=== PATIENT | female | born 1995 | race African-American/Black ===

== ENCOUNTER 2017-08-03 23:56 | Emergency (ER) | payer OTHER, SELFPAY ==
[2017-08-03 23:57] VITALS: BP 87/55; PULSE 95; RESP 20; TEMP 36.6; O2SAT 97; BMI 47.7
--- NOTE | 2017-08-04 00:14 | RAD_ITS ---
STUDY: X-RAY - LEFT WRIST REASON FOR EXAM: Female, 22 years old. Fracture of the distal radius after recent fall. TECHNIQUE: 3 view(s) of the wrist were obtained. COMPARISON: Prior comparison studies are not available for review at this time. FINDINGS: There is an acute displaced fracture of the distal radial metaphysis. Fracture fragments are displaced posteriorly. The fracture appears to involve the distal radioulnar articulation. Normal radiocarpal articulation. Normal carpal bones. Normal carpal articulations. Normal carpometacarpal articulation of the thumb. Normal second through fifth carpometacarpal articulations. Normal visualized metacarpal bones. There is soft tissue swelling. RAD/Wrist min 3 Views IMPRESSION: Acute intra-articular Colles' fracture of the distal radius. Electronically Signed: Jazmyne Allen MD at 1:20 EDT , Service support ,
--- NOTE | 2017-08-04 00:15 | ED.VISSUMM ---
- ER Visit Summary Date of Service: 08/04/17 Chief Complaint: Left wrist injury History of Present Illness: The patient is a 22 F mechanical fall while at the bar half hour prior to arrival. Left wrist pain. Had 3 alcoholic drinks. Denies head injuries. No loss of consciousness. No neck or back pain. History of right wrist and hand fracture when she was younger. No surgical interventions. No paresthesias. Pain worse with movement. No other complaints. Admits to alcohol drinks on weekends and sometimes on Wednesdays, occasional THC use. Tobacco history. Physical Examination: General: Alert and oriented ?3, tearful, anxious, however follows commands. HEENT: Normocephalic, atraumatic. Moist mucosa membranes Neck: supple, nontender. Cardiovascular: Regular rate and rhythm, no murmurs Respiratory: Normal breath sounds, symmetric, no distress Abdomen: Soft, nontender, nondistended Extremities: Right upper extremity: No shoulder or elbow pain. There is swelling and tenderness at the snuffbox. Mild tenderness at the ulnar styloid. No hand tenderness. Skin intact. Neuro: no focal neurological deficits. Test Results: Left wrist x-ray: Distal radius fracture with dorsal tilt, 50% displaced. Post reduction: Improved tilt, 25% dorsal displacement. Emergency Department Course and Treatment: X-ray notes distal radius fracture. Hematoma block performed and reduce with a plaster splint in a flexed position. Patient neurovascularly intact post splinting. Repeat x-ray notes improved tilt, there is 25% displacement, improved from original. Sling was provided for comfort. Discussed to maintain the splint, she is given follow-up with on-call orthopedist, Dr. Pinon. She declines any opiates. She states she will use Tylenol or Motrin. She will follow-up as an outpatient. Treatment Plan: [] Disposition: Discharge Impression: Left distal radius fracture status post reduction This note was generated with [employer] dictation software. It may contain incorrect words, spelling, and punctuation that were not noted in review of the chart prior to signing ED Disposition - Plan for ED Patient: Disposition: Home or Assisted Living Chief Complaint: Upper Extremity Injury Diagnosis: Left wrist fracture Instructions: ED Fx Colles Wrist Redu Requ Referrals: [facility] Doctor,Out of [NON-STAFF] - Aryan Pinon MD [STAFF PHYSICIAN] - 3-5 Days Additional Instructions: Distal radius fracture. Keep splint, use sling for comfort. Tylenol or Motrin as needed.
--- NOTE | 2017-08-04 01:44 | RAD_ITS ---
STUDY: X-RAY - LEFT WRIST REASON FOR EXAM: Female, 22 years old. Documentation of closed reduction of a Colles' fracture the distal radius. TECHNIQUE: AP and lateral view(s) of the wrist were obtained. COMPARISON: Radiographs of the left wrist dated August 04, 2017 FINDINGS: There is improved alignment of the fracture fragments of the distal radius. The previous study. A cast is present. There is a negative ulnar variance. The fracture extends into the distal radioulnar articulation. Normal carpal bones. Normal carpal articulations. Normal carpometacarpal articulation of the thumb. Normal second through fifth carpometacarpal articulations. Normal visualized metacarpal bones. There is soft tissue swelling. RAD/Wrist 2 Views IMPRESSION: Documentation of closed reduction of the displaced Colles' fracture and application of a cast. Electronically Signed: Jazmyne Allen MD at 3:07 EDT , Service support ,
[2017-08-04 02:53] VITALS: BP 150/90; PULSE 80; RESP 18
== END 2017-08-04 02:54 | disposition home or self-care (01) ==
PROVIDERS: Emergency Provider Emergency Medicine
DX: S52.532A Colles' fracture of left radius, initial encounter for closed fracture (principal); W19.XXXA Unspecified fall, initial encounter; Y93.89 Activity, other specified; Y92.89 Other specified places as the place of occurrence of the external cause; Z72.89 Other problems related to lifestyle; Z72.0 Tobacco use
CPT/HCPCS: 25605; 73100; 73110; 99283

== ENCOUNTER 2017-08-04 11:11 | Emergency (ER) | payer OTHER, SELFPAY ==
[2017-08-04 11:12] VITALS: BP 170/123; PULSE 77; RESP 16; TEMP 36.6; O2SAT 98; BMI 47.5
--- NOTE | 2017-08-04 11:40 | ED.DCSUM_ITS ---
- ER Visit Summary Date of Service: 08/04/17 Chief Complaint: [Injury to left wrist] History of Present Illness: The patient is a 22 F [presents to the emergency department with pain to her left wrist after sustaining a fracture yesterday. Patient states she fell on a wet floor and try to catch herself with her left arm injuring her wrist. Patient was seen in this emergency department and the emergency room doctor attempted a reduction and patient was splinted and advised to follow-up with orthopedics. Patient states that initially she refused pain medication because her wrist was kind of numb but now having a lot more discomfort. Patient has not been wearing her sling because she states that it is uncomfortable.] Physical Examination: [Left arm-patient has a splint in place. No significant edema of the digits or hand noted. Patient has normal range of motion and normal cap refill. Neurovascularly intact.] Test Results: [None indicated] Emergency Department Course and Treatment: [Patient was medicated with 2 [place] and will be given a sling. Case was discussed with Dr. Alex Allen who is on- call for orthopedics. Dr. Allen evaluated the patient's x-ray and post reduction films and stated that patient will likely require further treatment and that she needed to follow-up with Dr. Pinon who was on-call yesterday. Patient should follow-up within the next 1-2 days.] Treatment Plan: [[place] for pain] Disposition: [Discharged home in stable condition.] Impression: [Left distal radius fracture Left wrist pain] This note was generated with [employer] dictation software. It may contain incorrect words, spelling, and punctuation that were not noted in review of the chart prior to signing ED Disposition - Plan for ED Patient: Chief Complaint: Upper Extremity Injury Referrals: Care Physician,No Primary [Primary Care Provider] -
--- NOTE | 2017-08-04 11:42 | DCINST.ED_ITS ---
ED Disposition - Plan for ED Patient: Chief Complaint: Upper Extremity Injury Instructions: ED Fx Colles Wrist Redu Requ Prescriptions: Hydrocodone Bitart/Apap 5-325 [[place] 5/325] 1 - 2 tab PO Q4H PRN PRN 5 Days #20 tab PRN Reason: Pain Referrals: Care Physician,No Primary [Primary Care Provider] - Aryan Pinon MD [STAFF PHYSICIAN] - 1-2 Days if not improving
[2017-08-04] MEDS: HYDROcodone Bitartrate/Apap 5/325 Tablet PO (12:06)
[2017-08-04 12:16] VITALS: BP 154/99; PULSE 89; RESP 18; O2SAT 99
== END 2017-08-04 12:20 | disposition home or self-care (01) ==
LOC: ED 12:07
PROVIDERS: Emergency Provider Emergency Medicine
DX: S52.502A Unspecified fracture of the lower end of left radius, initial encounter for closed fracture (principal); W01.0XXA Fall on same level from slipping, tripping and stumbling without subsequent striking against object, initial encounter; Y93.9 Activity, unspecified; Y92.9 Unspecified place or not applicable; F12.90 Cannabis use, unspecified, uncomplicated
CPT/HCPCS: 99282

== ENCOUNTER → 2017-08-16 16:34 | Outpatient (CLI) | payer OTHER, SELFPAY ==
[2017-08-16 17:08] LABS: Hematocrit 39.7 % (37-47); Hemoglobin 12.5 g/dl (12.0-15.0); Mean Corp Hgb Conc 31.5 g/gl (32-36); Mean Corpuscular Hgb 24.6 pg (27.0-32.0); Mean Platelet Vol. 10.6 fl (6.2-12.0); Platelet Count 347 K/mm3 (150-450); RBC Distribution Width CV 14.7 % (11.6-14.6); RBC Distribution Width SD 41.1 fl (35.1-43.9); Red Blood Count 5.09 M/mm3 (4.2-5.4); White Blood Count 12.6 K/mm3 (4.4-11.0)
[2017-08-16 17:13] LABS: Scan Indicated on CBC? Y/N NO
[2017-08-16 17:49] LABS: Anion Gap 7 (5-15); BUN 8 mg/dL (7-18); Chloride 108 mmol/L (98-107); Creatinine, Serum 0.67 mg/dL (0.55-1.02); EST Glomerular Filtration Rate 118 mL/min (>60); Est Glom Filt Rate - Afr Amer 143 mL/min (>60); Glucose 78 mg/dL (74-106); Sodium Level 139 mmol/L (136-145)
== END ==
PROVIDERS: Visit Provider Orthopaedic Surgery
DX: Z01.818 Encounter for other preprocedural examination (principal); Z01.810 Encounter for preprocedural cardiovascular examination; F17.200 Nicotine dependence, unspecified, uncomplicated
CPT/HCPCS: 36415; 80048; 85027; 93005

== ENCOUNTER 2018-06-23 12:11 | Emergency (ER) | payer MEDICAID, SELFPAY ==
[2018-06-23 12:12] VITALS: BP 167/83; PULSE 78; RESP 16; TEMP 36.3; O2SAT 98; BMI 50.3
--- NOTE | 2018-06-23 12:50 | RAD_ITS ---
STUDY: X-RAY - RIGHT FOOT CLINICAL: Female, 23 years old. Pain following injury. TECHNIQUE: 3 view(s) of the foot. COMPARISON: None. FINDINGS: Normal talus, calcaneus, and tarsal bones. Normal visualized subtalar, talonavicular, calcaneocuboid, tarsal and tarsometatarsal articulations. Nondisplaced transverse fractures at the base of the second and third metatarsals. Normal metatarsophalangeal joint of the great toe. There is a bipartite tibial sesamoid. Normal interphalangeal joint of the great toe. Normal phalanges of the great toe. Normal second through fifth metatarsophalangeal joints. Normal interphalangeal joints and phalanges of the lesser toes. Soft tissue swelling. RAD/Foot min 3 Views IMPRESSION: Nondisplaced transverse fractures involving the bases of the second and third metatarsals. Soft tissue swelling. Electronically Signed: Jalen Oliveira, at 13:29 EST , Service support ,
--- NOTE | 2018-06-23 14:54 | ED.VISSUMM ---
- ER Visit Summary Date of Service: 06/23/18 Chief Complaint: [Injury right foot] History of Present Illness: The patient is a 23 F [presents to the emergency department complaint of an injury to her right foot that occurred prior to arrival in the emergency department. Patient states that she was trying to put on a sock and she lost her balance and fell twisting her right foot. Patient unable to bear weight afterwards. Patient presented with her own crutches.] Physical Examination: [HEENT-PERRLA, EOMI. Cranial nerves II through XII grossly intact. TMs clear. Mucous membranes moist. No adenopathy. Cardiovascular-regular rate and rhythm without murmur or ectopy Lungs-clear to auscultation, chest wall stable without crepitus or subcu emphysema Abdomen-normoactive bowel sounds, soft, nontender, no rebound or rigidity, no peritoneal signs. Extremities-intact ?4, normal range of motion, normal pulses. Right foot-patient has diffuse soft tissue swelling over the dorsum and distal portion of the foot. Patient has diffuse tenderness to palpation. No obvious ecchymosis or bruising noted. No pain at the ankle.] Test Results: [X-rays of the right foot were obtained which showed a fracture of the second and third metatarsal bases.] Emergency Department Course and Treatment: [Case was discussed with Dr. Castro covering podiatry. I was asked to place patient in a posterior splint and crutches and nonweightbearing. Patient was given 1 dose of [place] p.o. Patient will follow up early next week with podiatry.] Treatment Plan: [Patient to follow-up with podiatry within next 3-5 days. Patient given a prescription for Crum Lynne.] Patient advised to ice and elevate the extremity patient advised on nonweightbearing Disposition: [Discharged home in stable condition.] Impression: [Right foot fractures second and third metatarsal bases] This note was generated with [employer] dictation software. It may contain incorrect words, spelling, and punctuation that were not noted in review of the chart prior to signing ED Disposition - Plan for ED Patient: Referrals: Sumeet Blount MD [Primary Care Provider] -
--- NOTE | 2018-06-23 14:58 | ED.DCSUM_ITS ---
- ER Visit Summary Date of Service: 06/23/18 Chief Complaint: [Injury right foot] History of Present Illness: The patient is a 23 F [presents to the emergency department complaint of an injury to her right foot that occurred prior to arrival in the emergency department. Patient states that she was trying to put on a sock and she lost her balance and fell twisting her right foot. Patient unable to bear weight afterwards. Patient presented with her own crutches.] Physical Examination: [HEENT-PERRLA, EOMI. Cranial nerves II through XII grossly intact. TMs clear. Mucous membranes moist. No adenopathy. Cardiovascular-regular rate and rhythm without murmur or ectopy Lungs-clear to auscultation, chest wall stable without crepitus or subcu emphysema Abdomen-normoactive bowel sounds, soft, nontender, no rebound or rigidity, no peritoneal signs. Extremities-intact ?4, normal range of motion, normal pulses. Right foot- patient has diffuse soft tissue swelling over the dorsum and distal portion of the foot. Patient has diffuse tenderness to palpation. No obvious ecchymosis or bruising noted. No pain at the ankle.] Test Results: [X-rays of the right foot were obtained which showed a fracture of the second and third metatarsal bases.] Emergency Department Course and Treatment: [Case was discussed with Dr. Castro covering podiatry. I was asked to place patient in a posterior splint and crutches and nonweightbearing. Patient was given 1 dose of [place] p.o. Patient will follow up early next week with podiatry.] Treatment Plan: [Patient to follow-up with podiatry within next 3-5 days. Patient given a prescription for Langlois.] Patient advised to ice and elevate the extremity patient advised on nonweightbearing Disposition: [Discharged home in stable condition.] Impression: [Right foot fractures second and third metatarsal bases] This note was generated with [employer] dictation software. It may contain incorrect words, spelling, and punctuation that were not noted in review of the chart prior to signing ED Disposition - Plan for ED Patient: Referrals: Sumeet Blount MD [Primary Care Provider] -
--- NOTE | 2018-06-23 14:58 | ED.DEP ---
ED Disposition - Plan for ED Patient: Instructions: ED Fx Foot Prescriptions: Hydrocodone Bitart/Apap 5-325 [[place] 5MG-325MG] 1 tab PO Q4H PRN PRN 2 Days #20 tab PRN Reason: Pain Referrals: Sumeet Blount MD [Primary Care Provider] - Beau Castro DPM [STAFF PHYSICIAN] - 3-5 Days
[2018-06-23] MEDS: HYDROcodone Bitartrate/Apap 5/325 Tablet PO (15:01)
[2018-06-23 15:35] VITALS: BP 138/89; PULSE 88; RESP 16; O2SAT 98
== END 2018-06-23 15:36 | disposition home or self-care (01) ==
PROVIDERS: Emergency Provider Emergency Medicine; Family Provider Pediatrics; PCP Pediatrics
DX: S92.324A Nondisplaced fracture of second metatarsal bone, right foot, initial encounter for closed fracture (principal); S92.334A Nondisplaced fracture of third metatarsal bone, right foot, initial encounter for closed fracture; W19.XXXA Unspecified fall, initial encounter; Y93.89 Activity, other specified; Y92.9 Unspecified place or not applicable
CPT/HCPCS: 29515; 73630; 99283

== ENCOUNTER → 2018-06-28 14:15 | Outpatient (CLI) | payer MEDICAID, SELFPAY ==
[2018-06-23 12:12] VITALS: BMI 50.3
--- NOTE | 2018-06-28 14:21 | VDLE_ITS ---
Reason For Study: LEG PAIN RIGHT GSV is normal. CFV is compressible, spontaneous, phasic, competent and demonstrates normal augmentation. FV is compressible, spontaneous, phasic, competent and demonstrates normal augmentation. POP V is compressible, spontaneous, phasic, competent and demonstrates normal augmentation. T/P Trunk is compressible. PTV is compressible. Acute deep vein thrombosis is noted in the right peroneal vein. Procedure Exam performed in department. A preliminary report was called and/or faxed to Dr. Castro. Interpretation Summary Acute deep vein thrombosis is noted in the right peroneal vein. The remainder of the right lower extremity deep venous system is patent and compressible. Valvular competence appears intact within the proximal deep venous system on the right . The right greater saphenous vein appears patent and compressible segmentally. Ordering Physician: Beau Castro Referring Physician: Beau Castro Performed By: Laurel Beaulieu RVT
== END ==
PROVIDERS: Referring Provider Podiatrist; Visit Provider Podiatrist
DX: I82.401 Acute embolism and thrombosis of unspecified deep veins of right lower extremity (principal)
CPT/HCPCS: 93971

== ENCOUNTER 2018-06-28 15:43 | Emergency (ER) | payer MEDICAID, SELFPAY ==
[2018-06-28 15:45] VITALS: BP 164/94; PULSE 82; RESP 16; TEMP 36.6; O2SAT 99; BMI 51.5
--- NOTE | 2018-06-28 17:45 | ED.DCSUM_ITS ---
- ER Visit Summary Date of Service: 06/28/18 Chief Complaint: Right lower extremity DVT History of Present Illness: The patient is a 23 F presenting with right lower extremity DVT. Patient recently sustained a metatarsal fracture on Tuesday. She has been wearing a ortho boot. She developed right calf pain today. She was seen by Dr. Castro and sent for outpatient ultrasound. This showed a distal DVT. She was sent into the ED for further evaluation. She denies chest pain or shortness of breath. Denies lightheadedness or syncope. Denies other complaints Physical Examination: Vitals are stable. Patient is afebrile. Alert no acute distress. HEENT exam is unremarkable. Neck is supple. Lungs are clear and equal bilaterally. Heart is regular rate and rhythm. Abdomen is soft nontender nondistended. Extremities right mild calf tenderness, normal cap refill Skin is warm and dry. No focal neurologic deficit. Remainder of exam is unremarkable. Emergency Department Course and Treatment: Venous Doppler shows acute deep vein thrombosis noted in the right peroneal vein. CBC, chemistries are unremarkable. HCG negative. She is started on Eliquis. She is advised to follow-up with primary care physician. Advised return to ED if worsening complaints. Disposition: Discharge home Impression: Right lower extremity DVT This note was generated with [employer] dictation software. It may contain incorrect words, spelling, and punctuation that were not noted in review of the chart prior to signing ED Disposition - Plan for ED Patient: Disposition: Home or Assisted Living Instructions: ED DVT Prescriptions: Apixaban [Eliquis] 5 mg PO BID #74 tablet Referrals: Bandar Trotter III, MD [STAFF PHYSICIAN] -
[2018-06-28 18:18] LABS: Anion Gap 9 (5-15); BUN 9 mg/dL (7-18); BUN/Creat Ratio 10.7 RATIO (10-20); Calcium,Total 9.2 mg/dL (8.5-10.1); Chloride 108 mmol/L (98-107); Creatinine, Serum 0.84 mg/dL (0.55-1.02); EST Glomerular Filtration Rate 90 mL/min (>60); Est Glom Filt Rate - Afr Amer 108 mL/min (>60); Estimated Creatinine Clearance 94.53 ml/min; Glucose 84 mg/dL (74-106); Potassium 3.9 mmol/L (3.5-5.1); Sodium Level 139 mmol/L (136-145)
[2018-06-28 18:20] LABS: Absolute Lymphocyte Count 3.16 X10^3/ul (0.83-4.51); Absolute Neutrophil Count 9.4 X10^3/uL (2.0-7.7); Basophil# 0.02 X10^3/uL; Basophil% 0.1 % (0-1); Eosinophil# 0.04 X10^3/uL; Eosinophils% 0.3 % (0-5); Hematocrit 44.6 % (37-47); Hemoglobin 13.8 g/dl (12.0-15.0); Lymphocyte # 3.16 X10^3/ul (4.0); Lymphocyte % 23.5 % (19-41); Mean Corp Hgb Conc 30.9 g/gl (32-36); Mean Corpuscular Volume 80.9 fL (81-99); Mean Platelet Vol. 10.5 fl (6.2-12.0); Monocyte# 0.75 X10^3/uL; Monocyte% 5.6 % (0-10); Neutrophil # 9.43 X10^3/uL (2.7-7.7); Neutrophil % 70.3 % (47-70); Platelet Count 337 K/mm3 (150-450); RBC Distribution Width CV 14.8 % (11.6-14.6); RBC Distribution Width SD 43.8 fl (35.1-43.9); Red Blood Count 5.51 M/mm3 (4.2-5.4); White Blood Count 13.4 K/mm3 (4.4-11.0)
[2018-06-28 18:21] LABS: POSITIVE COUNT NO; POSITIVE DIFFERENTIAL NO; POSITIVE MORPHOLOGY NO
[2018-06-28 19:12] LABS: Pregnancy, Serum, hCG Quali. NEGATIVE Negative (0-9 Nonpreg)
--- NOTE | 2018-06-28 19:20 | ED.DEP ---
ED Disposition - Plan for ED Patient: Instructions: ED DVT Prescriptions: Apixaban [Eliquis] 5 mg PO BID #74 tablet Referrals: Bandar Trotter III, MD [STAFF PHYSICIAN] -
[2018-06-28] MEDS: APIXABAN 5 MG TABLET 10 MG PO (19:32)
[2018-06-28 19:34] VITALS: BP 142/56; PULSE 83; RESP 181; O2SAT 99
== END 2018-06-28 19:37 | disposition home or self-care (01) ==
LOC: ED 17:47
PROVIDERS: Emergency Provider Emergency Medicine
DX: I82.491 Acute embolism and thrombosis of other specified deep vein of right lower extremity (principal)
CPT/HCPCS: 80048; 84703; 85025; 93971; 99283

== ENCOUNTER → 2018-09-01 15:00 | Outpatient (CLI) | payer MEDICAID, SELFPAY ==
--- NOTE | 2018-09-01 15:05 | VDLE_ITS ---
Reason For Study: F/U DVT RIGHT LEFT GSV is normal. GSV is normal. CFV is compressible, spontaneous, phasic, CFV is compressible, spontaneous, phasic, competent and demonstrates normal competent, and demonstrates normal augmentation. augmentation. FV is compressible, spontaneous, phasic, FV is compressible, spontaneous, phasic, competent and demonstrates normal competent and demonstrates normal augmentation. augmentation. POP V is compressible, spontaneous, phasic, POP V is compressible, spontaneous, phasic, competent and demonstrates normal competent and demonstrates normal augmentation. augmentation. T/P Trunk is compressible. T/P Trunk is compressible. PTV is compressible. PTV is compressible. Rt PeroV is partially compressible, LT PerV is compressible. improvement noted from previous study done on 06/28/18. Procedure Exam performed in department. A preliminary report was called and/or faxed to Dr. Castro, Dr. Queen office. Interpretation Summary The right peroneal vein is now partially compressible, demonstrating improvement since a prior study on 06/28/2018, at which time acute deep vein thrombosis was noted. The remainder of the right lower extremity deep venous system is patent and compressible. Deep veins of the left lower extremity are patent and compressible segmentally. There is no evidence of left lower extremity deep vein thrombosis. Valvular competence appears intact within the proximal deep venous systems bilaterally. The greater saphenous veins appear bilaterally patent and compressible segmentally. Ordering Physician: Beau Castro Referring Physician: Da Sims Performed By: Tamika Lentz RDCS, RVT
== END ==
PROVIDERS: Referring Provider Podiatrist; Visit Provider Podiatrist
DX: I82.403 Acute embolism and thrombosis of unspecified deep veins of lower extremity, bilateral (principal)
CPT/HCPCS: 93970